=== PATIENT | male | born 1960 | race Caucasian/White ===

== ENCOUNTER 2022-09-30 09:00 | Outpatient (RCR) | payer OTHER ==
[~2022-09-30 09:00] MED LIST: FLEXERIL 1010 MG/TAB PO; NORCO 325 MG-51 TAB PO
== END 2022-10-02 | disposition home or self-care (01) ==
LOC: WSPT
DX: M25.511 Pain in right shoulder (principal)

== ENCOUNTER 2023-02-01 10:30 | Outpatient (RCR) | payer OTHER | END 2023-02-02 | disposition home or self-care (01) | LOC: WSPT | DX: S43.401D Unspecified sprain of right shoulder joint, subsequent encounter (principal); Z98.890 Other specified postprocedural states; X58.XXXD Exposure to other specified factors, subsequent encounter ==

== ENCOUNTER 2023-02-22 09:45 | Outpatient (RCR) | payer OTHER | END 2023-03-04 | disposition home or self-care (01) | LOC: WSPT | DX: M25.511 Pain in right shoulder (principal); Z98.890 Other specified postprocedural states ==

== ENCOUNTER 2023-04-17 09:45 | Outpatient (RCR) | payer OTHER | END 2023-04-17 11:00 | disposition home or self-care (01) | LOC: WSPT 09:45 | DX: S46.011D Strain of muscle(s) and tendon(s) of the rotator cuff of right shoulder, subsequent encounter (principal); X58.XXXD Exposure to other specified factors, subsequent encounter ==

== ENCOUNTER 2023-08-30 09:45 | Outpatient (RCR) | payer OTHER | END 2023-09-03 | disposition home or self-care (01) | LOC: WSC | DX: M47.26 Other spondylosis with radiculopathy, lumbar region (principal); M47.22 Other spondylosis with radiculopathy, cervical region ==

== ENCOUNTER 2023-09-27 08:15 | Outpatient (RCR) | payer OTHER | END 2023-09-27 15:00 | disposition home or self-care (01) | LOC: WSPT 08:15 | DX: M47.812 Spondylosis without myelopathy or radiculopathy, cervical region (principal); M47.816 Spondylosis without myelopathy or radiculopathy, lumbar region ==

== ENCOUNTER → 2023-10-02 | Outpatient (CLI) | payer OTHER | LOC: COL.VAS 10-01 08:45 | DX: I35.1 Nonrheumatic aortic (valve) insufficiency (principal) ==